=== PATIENT | male | born 1960 | race Caucasian/White ===

== ENCOUNTER 2022-12-28 08:49 | Emergency (ER) | payer OTHER ==
[2022-12-28 09:28] VITALS: BP 180/122
[2022-12-28 09:33] LABS: BILIRUBIN,URINE NEGATIVE (NEGATIVE); GLUCOSE, URINE (UA) NEGATIVE (NEGATIVE); KETONES,URINE (UA) NEGATIVE (NEGATIVE); LEUKOCYTE ESTERASE, URINE TRACE (NEGATIVE); NITRITE,URINE NEGATIVE (NEGATIVE); OCCULT BLOOD,URINE MODERATE (NEGATIVE); PH,URINE 5.5 PH (5.0-7.5); PROTEIN,URINE NEGATIVE (NEGATIVE); UROBILINOGEN,URINE 0.2 (NORMAL) E.U./dL (NORMAL)
[2022-12-28 09:37] LABS: BASOPHILS # (AUTO) 0.1 10^3/uL (0.0-0.1); BASOPHILS % (AUTO) 1.1 %; EOSINOPHILS # (AUTO) 0.3 10^3/uL (0.0-0.7); EOSINOPHILS % (AUTO) 4.1 %; LYMPHOCYTES % (AUTO) 15.8 %; MEAN CORPUSCULAR HEMOGLOBIN 30.1 pg (27.0-31.0); MEAN CORPUSCULAR HGB CONC 32.6 g/dL (32.0-36.0); MEAN CORPUSCULAR VOLUME 92.2 fL (80.0-94.0); MEAN PLATELET VOLUME 9.1 fL (7.4-11.4); MONOCYTES # (AUTO) 0.5 10^3/uL (0.0-1.0); MONOCYTES % (AUTO) 7.7 %; NEUTROPHILS # (AUTO) 4.7 10^3/uL (1.5-6.6); NEUTROPHILS % (AUTO) 70.8 %; PLT - PLATELET COUNT 231 10^3/uL (130-450); RED BLOOD COUNT 4.99 10^6/uL (4.70-6.10); WHITE BLOOD COUNT 6.6 x10^3/uL (4.8-10.8)
[2022-12-28 09:44] LABS: PT - PROTHROMBIN TIME 11.3 secs (9.9-12.6)
[2022-12-28 09:44] LABS: CLARITY,URINE HAZY (CLEAR)
[2022-12-28 09:51] LABS: WBC CLUMPS,URINE PRESENT
[2022-12-28 09:52] LABS: AMORPHOUS SEDIMENT,UR Few /LPF; BACTERIA,URINE Many /HPF (None Seen); MUCUS,URINE Few Strands; SQUAMOUS EPITHELIAL CELL,UR RARE Squamous (<= Few)
[2022-12-28] MEDS ORDERED: SULFAMETH/TRIMETH DS 800/160 MG TABLET PO STA (10:11)
--- NOTE | 2022-12-28 10:15 | ED Physician Documentation ---
History of Present Illness - Stated complaint Stated Complaint: MALE - Chief complaint Chief Complaint: Abd Pain - History obtained from History obtained from: Patient - Additonal information Additional information: The patient comes to the emergency department chief complaint of urinary frequency, hematuria, and "flulike symptoms" for the last several days. He states that he has had some blood tingeing in his urine and passed a few clots. He states clots are fairly small, but that he called his primary doctor's office and the doctor who was covering for his doctor told him to just come to the ER in case he had bladder cancer. The patient states he is felt a little bit of feeling of fever and chills but has not actually measured a fever. He denies any nausea or vomiting. He states actually his symptoms feel little better today than they have the last several days. No other complaints at this time. The patient states he thinks he may have an enlarged prostate because he has had some difficulty initiating his urine stream and evacuating completely, he thinks, for some years. PD PAST MEDICAL HISTORY - Present Medications Home Medications: Ambulatory Orders Medication Instructions Recorded Confirmed Albuterol Sulfate [Proair 90 mcg IH Q4HR PRN 12/28/22 12/28/22 Digihaler] Fluticasone Propion/Salmeterol 1 puffs INH DAILY 12/28/22 12/28/22 [Fluticasone-Salmeterol 250-50] Lisinopril [Zestril] 40 mg PO DAILY 12/28/22 12/28/22 Sulfamethox/Trimeth 800/160 1 each PO BID #14 tablet 12/28/22 [Bactrim Ds 800/160] - Allergies Allergies/Adverse Reactions: Allergies Allergy/AdvReac Type Severity Reaction Status Date / Time No Known Drug Allergies Allergy Verified 12/28/22 09:00 PD ED PE NORMAL - Vitals Vital signs reviewed: Yes - General General: Alert and oriented X 3, No acute distress, Well developed/nourished - HEENT HEENT: Atraumatic, PERRL, EOMI, Moist mucous membranes - Neck Neck: Supple, no meningeal sign - Cardiac Cardiac: RRR, No murmur - Respiratory Respiratory: No respiratory distress, Clear bilaterally - Abdomen Abdomen: Soft, Non tender, Non distended - Derm Derm: Normal color, Warm and dry, No rash - Extremities Extremities: No deformity, No edema - Neuro Neuro: Alert and oriented X 3, application lead 2-12 intact, Normal speech - Psych Psych: Normal mood, Normal affect Results - Vitals Vitals: Vital Signs - 24 hr 12/28/22 12/28/22 08:56 09:23 Temperature 36.6 C Heart Rate 67 69 Respiratory 15 20 Rate Blood Pressure 170/100 H 180/122 H O2 Saturation 96 97 Oxygen O2 Source Room air - Labs Labs: Laboratory Tests 12/28/22 12/28/22 12/28/22 09:17 09:32 09:32 WBC 6.6 RBC 4.99 Hgb 15.0 Hct 46.0 MCV 92.2 MCH 30.1 MCHC 32.6 RDW 13.0 Plt Count 231 MPV 9.1 Neut # (Auto) 4.7 Lymph # (Auto) 1.0 L [place] # (Auto) 0.5 Eos # (Auto) 0.3 Baso # (Auto) 0.1 Absolute Nucleated RBC 0.00 Nucleated RBC % 0.0 PT 11.3 INR 1.0 Urine Color YELLOW Urine Clarity HAZY Urine pH 5.5 Ur Specific [place] 1.020 Urine Protein NEGATIVE Urine Glucose (UA) NEGATIVE Urine Ketones NEGATIVE Urine Occult Blood MODERATE H Urine Nitrite NEGATIVE Urine Bilirubin NEGATIVE Urine Urobilinogen 0.2 (NORMAL) Ur Leukocyte Esterase TRACE H Urine RBC 11-25 H Urine WBC 11-25 H Urine WBC Clumps PRESENT Ur Squamous Epith Cells RARE Squamous Amorphous Sediment Few Urine Bacteria Many H Urine Mucus Few Strands Ur Microscopic Review INDICATED Urine Culture Comments INDICATED PD Medical Decision Making - ED course Complexity details: reviewed results, re-evaluated patient, considered differential, d/w patient ED course: The patient's urinalysis was performed and was positive for infection. He did have some hematuria on his urinalysis. I discussed with him his concerns about his prostate, and that he needs to follow-up with his doctor to have a PSA done, and decide if he needs referral to urology. At this point in time, we have started antibiotics in the emergency department the patient is stable for discharge home Departure - Departure Disposition: 01 Home, Self Care Clinical Impression: Urinary tract infection Qualifiers: Urinary tract infection type: acute cystitis Hematuria presence: with hematuria Qualified Code(s): N30.01 - Acute cystitis with hematuria Condition: Stable Instructions: ED UTI Cystitis Male Prescriptions: Sulfamethox/Trimeth 800/160 [Bactrim Ds 800/160] 1 each PO BID #14 tablet Comments: Your urinalysis shows a urinary tract infection. There is still some blood in your urine but probably not visible to the naked eye. You been started on antibiotics for your infection and a prescription for the same is been electronically transmitted to the [facility] pharmacy in [place]. Please pick these up and take your next dose this afternoon. Please take the antibiotics as directed until the course is complete. Please follow-up with your primary doctor for further concerns about your prostate or if bleeding continues beyond 1 week after antibiotics are complete.
== END 2022-12-28 10:50 | disposition home or self-care (01) ==
LOC: ED 08:49
DX: N30.01 Acute cystitis with hematuria (principal)
CPT/HCPCS: 36415; 81001; 85025; 85610; 87077; 87086; 87181; 99283; A9270; 81003